=== PATIENT | female | born 1975 | race Caucasian/White ===

== ENCOUNTER 2023-08-02 10:05 | Outpatient (CLI) | payer OTHER | END 2023-08-02 21:35 | disposition home or self-care (01) | LOC: SMI 10:05 | PROVIDERS: ATTEND Orthopaedic Surgery Sports Medicine | DX: M79.89 Other specified soft tissue disorders (principal); M79.642 Pain in left hand; M25.532 Pain in left wrist | CPT/HCPCS: 73221 ==